=== PATIENT | male | born 1985 | race Caucasian/White ===

== ENCOUNTER 2018-04-12 18:17 | Emergency (ER) | payer BC ==
[2018-04-12 18:29] VITALS: BMI 21.5
[2018-04-12 18:31] VITALS: O2SAT 99
[2018-04-12] MEDS ORDERED: Tdap Vaccine 0.5 ml Vial (10-64 yrs) IM ONE ×2 (18:52→19:57)
--- NOTE | 2018-04-12 19:35 | ED PDOC ---
Upper Extremity Pain/Injury Time Seen by Provider: 04/12/18 18:51 Chief Complaint (Nursing): Upper Extremity Problem/Injury Chief Complaint (Provider): Left hand injury History Per: Patient History/Exam Limitations: no limitations Onset/Duration Of Symptoms: Hrs (x2) Current Symptoms Are (Timing): Still Present Additional Complaint(s): 32 year old male presented to ED for evaluation of left hand injury and tetanus shot. Patient reports he cut his pinky finger on a paper shredder 2 hours ago and applied turmeric powder to the wound. He denied taking medications [employer]. Patient is left hand dominant. PCP: Dr. Kirby Past Medical History Reviewed: Historical Data, Nursing Documentation, Vital Signs Vital Signs: Last Vital Signs Temp 98.3 F 04/12/18 18:29 Pulse 66 04/12/18 18:29 Resp 16 04/12/18 18:29 BP 112/75 04/12/18 18:29 Pulse Ox 99 04/12/18 18:29 - Medical History PMH: No Chronic Diseases - Surgical History Surgical History: No Surg Hx - Family History Family History: States: Unknown Family Hx - Social History Current smoker - smoking cessation education provided: No Alcohol: Social Drugs: Denies - Allergies Allergies/Adverse Reactions: Allergies Allergy/AdvReac Type Severity Reaction Status Date / Time No Known Allergies Allergy Verified 04/12/18 18:45 Review of Systems ROS Statement: Except As Marked, All Systems Reviewed And Found Negative Musculoskeletal: Positive for: Other (5th digit of left hand injury) Physical Exam - Reviewed Nursing Documentation Reviewed: Yes Vital Signs Reviewed: Yes - Physical Exam Comments: GENERAL APPEARANCE: Patient is awake, alert, oriented x 3, in no acute distress. SKIN: Warm, dry; (-) cyanosis. NECK: Supple, FROM LEFT HAND: 2mm by 2mm skin avulsion of palmar aspect of 5th distal digit, inferior of the nail. No active bleeding. (-) ecchymosis (-) FB visualized (-) nail involvement. Neurovascularly intact. FROM all digits. CHEST AND RESPIRATORY: (-) wheezing; (-) rales, (-) rhonchi, (-) rub; breath sounds equal bilaterally. Respirations even and nonlabored, speaking in full sentences. HEART AND CARDIOVASCULAR: (-) irregularity; (-) murmur, (-) gallop. NEURO AND PSYCH: Mental status as above. Gait steady, speech clear. - ECG O2 Sat by Pulse Oximetry: 99 (RA) Pulse Ox Interpretation: Normal Medical Decision Making Medical Decision Making: Initial Impression: skin avulsion of finger Initial Plan: Tetanus 0.5mL IM Wound irrigated with saline; bacitracin and bandaid applied 1999 On re-evaluation, patient reports improvement of symptoms. On exam, patient remains AAOx3, in no acute distress. On exam, neck is supple, lungs CTA, cardiac RRR, neuro exam shows no focal findings. Vitals stable. Educated on wound care. Diagnostic results d/w the patient in great detail. Dx of skin avulsion of finger d/w the patient. Based on history, exam and diagnostic results plan will be for discharge and outpatient follow up. Advised to follow up with primary care physician in 1-2 days without fail. Return to the emergency room at any time for any new or worsening symptoms. Patient states he fully agrees with and understands discharge instructions. States that he agrees with the plan and disposition. Verbalized and repeated discharge instructions and plan. I have given the patient opportunity to ask any additional questions. Scribe Attestation: Documented by Ramses Shukla acting as a scribe for Stacy CRUZ. Provider Scribe Attestation: All medical record entries made by the Scribe were at my direction and personally dictated by me. I have reviewed the chart and agree that the record accurately reflects my personal performance of the history, physical exam, medical decision making, and the department course for this patient. I have also personally directed, reviewed, and agree with the discharge instructions and disposition. Disposition - Clinical Impression Clinical Impression: Avulsion of skin of finger - Patient ED Disposition Is Patient to be Admitted: No Counseled Patient/Family Regarding: Diagnosis, Need For Followup - Disposition Disposition: Routine/Home Disposition Time: 20:02 Condition: STABLE Additional Instructions: FOLLOW UP WITH PMD NEEDED. RETURN TO ED WITH ANY NEW OR WORSENING SYMPTOMS. KEEP WOUND CLEAN AND DRY. Instructions: Wound Care (DC), Common Finger Injuries Forms: [facility] (Greenlandic) Print Language: LITHUANIAN
[2018-04-12] MEDS ORDERED: Bacitracin 500 Units/gm Oint Foilpak UD TOP STA (20:01)
[2018-04-12] MEDS ORDERED: Bacitracin 500 Units/gm Oint Foilpak UD ONE (20:06)
[2018-04-13 02:07] VITALS: BP 110/76; PULSE 76; RESP 18; TEMP 98
== END 2018-04-12 20:10 | disposition home or self-care (01) ==
LOC: H.ER 18:17
DX: S61.209A Unspecified open wound of unspecified finger without damage to nail, initial encounter (principal); Z23 Encounter for immunization; W31.89XA Contact with other specified machinery, initial encounter